=== PATIENT | male | born 1990 | race Hispanic/Latino ===

== ENCOUNTER 2024-10-07 02:05 | Emergency (ER) | payer SELFPAY ==
[2024-10-07] MEDS ORDERED: Ketorolac Tromethamine 30 MG (1 mL) VIAL ONE (02:23)
[2024-10-07] MEDS ORDERED: Ondansetron PF 4 MG/2 ML Vial ONE (02:23)
[2024-10-07] MEDS ORDERED: Famotidine/PF 20 mg/2ml Vial ONE (02:23)
[2024-10-07 02:36] LABS: #Basophils 0.04 10x3/uL (0.0-0.2); #Monocytes 0.98 10x3/uL (0.0-1.1); %Basophils 0.4 % (0.0-2.0); %Lymphocytes 22.2 % (18.0-47.0); %Monocytes 9.8 % (0.0-10.0); Hematocrit 47.7 % (38.8-50.0); Hemoglobin 15.9 g/dL (13.5-17.5); Mean Corpuscular HGB CONC 33.3 g/dL (32.0-36.0); Mean Corpuscular Hemoglobin 28.1 pg (27.0-33.0); Mean Corpuscular Volume 84.4 fL (81.2-95.1); Mean Platelet Volume 10.4 fL (7.4-10.4); Platelet Count 271 10x3/uL (150-450); RBC Distribution Width 12.8 % (11.5-14.5); Red Blood Cell (RBC) Count 5.65 10x6/uL (4.32-5.72)
[2024-10-07 02:50] LABS: ALT (SGPT) 31 U/L (8-55); AST (SGOT) 20 U/L (5-34); Albumin 4.1 g/dL (3.5-5.0); Alkaline Phosphatase 114 U/L (40-110); Anion Gap 14 mmol/L (10-20); BUN (Urea Nitrogen) 10 mg/dL (8.9-20.6); Bilirubin, Total 0.7 mg/dL (0.2-1.2); Calc. Creatinine Clearance 0 mL/min (70-130); Calcium 9.3 mg/dL (7.8-10.44); Carbon Dioxide 23 mmol/L (22-29); Chloride 107 mmol/L (98-107); Estimated GFR 121; Globulin 3.2 g/dL (2.4-3.5); Glucose 153 mg/dL (70-105); Lipase 27 U/L (8-78); Potassium 3.7 mmol/L (3.5-5.1); Protein, Total 7.3 g/dL (6.0-8.3); Sodium 140 mmol/L (136-145)
[2024-10-07 02:57] LABS: Troponin I Less than 0.010 ng/mL (< 0.028)
== END 2024-10-07 03:20 | disposition home or self-care (01) ==
LOC: CSHERS 02:05
DX: R10.13 Epigastric pain (principal); I10 Essential (primary) hypertension; F17.290 Nicotine dependence, other tobacco product, uncomplicated
CPT/HCPCS: 71045; 80053; 83690; 84484; 85025; 93005; 96374; 96375; J1885; J2405; J3490

== ENCOUNTER 2025-05-08 05:57 | Observation (INO) | payer SELFPAY ==
[2025-05-08] MEDS ORDERED: Aspirin Chewable 81 MG TAB ONE (06:14)
[2025-05-08] MEDS ORDERED: hydrALAZINE 20 MG/ML VIAL ONE (06:14)
[2025-05-08 06:27] LABS: #Basophils 0.07 10x3/uL (0.0-0.2); #Eosinophils 0.46 10x3/uL (0.0-0.5); #Monocytes 0.84 10x3/uL (0.0-1.1); #Neutrophils 4.94 10x3/uL (1.5-8.4); %Basophils 0.8 % (0.0-2.0); %Eosinophils 5.2 % (0.0-6.0); %Lymphocytes 28.7 % (18.0-47.0); %Monocytes 9.4 % (0.0-10.0); %Neutrophils 55.5 % (40.0-75.0); Hematocrit 49.2 % (38.8-50.0); Hemoglobin 16.9 g/dL (13.5-17.5); Mean Corpuscular Hemoglobin 29.5 pg (27.0-33.0); Mean Corpuscular Volume 85.9 fL (81.2-95.1); Platelet Count 282 10x3/uL (150-450); Red Blood Cell (RBC) Count 5.73 10x6/uL (4.32-5.72); White Blood Cell (WBC) Count 8.91 10x3/uL (3.5-10.5)
[2025-05-08 06:45] LABS: ALT (SGPT) 40 U/L (Less than 45); AST (SGOT) 37 U/L (11-34); Albumin 4.8 g/dL (3.1-4.5); Alkaline Phosphatase 93 U/L (40-110); Anion Gap 14 mmol/L (10-20); BUN (Urea Nitrogen) 10 mg/dL (8.9-20.6); Bilirubin, Total 0.9 mg/dL (0.3-1.2); Calc. Creatinine Clearance 0 mL/min (70-130); Calcium 9.7 mg/dL (7.8-10.44); Carbon Dioxide 26 mmol/L (22-29); Chloride 106 mmol/L (98-107); Globulin 3.4 g/dL (2.4-3.5); Glucose 130 mg/dL (70-105); Potassium 3.8 mmol/L (3.5-5.1); Sodium 142 mmol/L (136-145)
[2025-05-08 06:52] LABS: Troponin I Less than 0.010 ng/mL (< 0.028)
[2025-05-08] MEDS ORDERED: Nitroglycerin 0.4 MG TAB 1 EACH ONE (07:27)
[2025-05-08] MEDS ORDERED: Melatonin 3 MG TAB PO PRN (08:24)
[2025-05-08] MEDS ORDERED: Acetaminophen 325 MG TAB PO PRN (08:24)
[2025-05-08] MEDS ORDERED: Senokot S 8.6-50 MG TAB PO PRN (08:24)
[2025-05-08] MEDS ORDERED: Nitroglycerin 0.4 MG TAB (25 Tab Bottle) SL PRN (08:24)
[2025-05-08] MEDS ORDERED: Ondansetron PF 4 MG/2 ML Vial IVP PRN (08:24)
[2025-05-08] MEDS ORDERED: Electrolyte Replacement Protocol 1 EACH FS PRN (08:30)
[2025-05-08 09:43] VITALS: BMI 48.3
[2025-05-08] MEDS: Pantoprazole 40 MG DR.TAB PO SCH (10:22)
[2025-05-08] MEDS: Aspirin Chewable 81 MG TAB PO SCH (10:22)
[2025-05-08] MEDS: Lisinopril 20 MG TAB PO SCH (10:22)
[2025-05-09 05:10] LABS: #Basophils 0.03 10x3/uL (0.0-0.2); #Eosinophils 0.38 10x3/uL (0.0-0.5); #Monocytes 0.70 10x3/uL (0.0-1.1); #Neutrophils 4.78 10x3/uL (1.5-8.4); %Basophils 0.4 % (0.0-2.0); %Eosinophils 4.7 % (0.0-6.0); %Lymphocytes 26.9 % (18.0-47.0); %Monocytes 8.6 % (0.0-10.0); %Neutrophils 59.0 % (40.0-75.0); Hematocrit 49.2 % (38.8-50.0); Hemoglobin 16.0 g/dL (13.5-17.5); Mean Corpuscular Hemoglobin 28.0 pg (27.0-33.0); Mean Corpuscular Volume 86.2 fL (81.2-95.1); Platelet Count 252 10x3/uL (150-450); Red Blood Cell (RBC) Count 5.71 10x6/uL (4.32-5.72); White Blood Cell (WBC) Count 8.10 10x3/uL (3.5-10.5)
[2025-05-09 05:28] LABS: Anion Gap 16 mmol/L (10-20); BUN (Urea Nitrogen) 9 mg/dL (8.9-20.6); Calc. Creatinine Clearance 333 mL/min (70-130); Calcium 8.4 mg/dL (7.8-10.44); Carbon Dioxide 24 mmol/L (22-29); Cardiac Risk 5.9 (Less than 4.5); Chloride 106 mmol/L (98-107); Cholesterol 166 mg/dl (< 200 Desired); Glucose 125 mg/dL (70-105); HDL Cholesterol 28 mg/dL (>60 Neg Risk); LDL Cholesterol, Calculated 90 mg/dL; Magnesium 1.8 mg/dL (1.6-2.6); Potassium 3.7 mmol/L (3.5-5.1); Sodium 142 mmol/L (136-145); Triglycerides 241 mg/dL (Less than 150)
[2025-05-09] MEDS: Pantoprazole 40 MG DR.TAB PO SCH (10:06)
[2025-05-09] MEDS: Magnesium 2 GM/50 ML(in water) 2 GM in Premix 1 BAG IVPB SCH (10:07)
[2025-05-09] MEDS: Lisinopril 20 MG TAB PO SCH (10:07)
[2025-05-09 16:33] VITALS: BP 131/85; TEMP 97.6
== END 2025-05-09 17:00 | disposition home or self-care (01) ==
LOC: CSHERS 05:57 → CSHTELE 08:14
PROVIDERS: ADMIT Internal Medicine; ATTEND Internal Medicine
PROC: B24BZZZ Ultrasonography of Heart with Aorta (ICD-10-PCS; principal; 2025-05-08)
DX: R07.2 Precordial pain (principal); I16.0 Hypertensive urgency; I10 Essential (primary) hypertension; E66.9 Obesity, unspecified; Z68.42 Body mass index [BMI] 45.0-49.9, adult; Z87.891 Personal history of nicotine dependence; Z79.899 Other long term (current) drug therapy
CPT/HCPCS: 36415; 71045; 80048; 80053; 80061; 83735; 84100; 84484; 85025; 93005; 93306; 94760; 96374; 96375; G0378; J0360; J3475